=== PATIENT | female | born 2000 | race Caucasian/White ===

== ENCOUNTER 2021-10-28 07:42 | Emergency (ER) | payer OTHER ==
[2021-10-28 07:49] VITALS: RESP 16
[2021-10-28] MEDS ORDERED: ONDANSETRON 4 MG/2 ML VIAL IVP STA (08:23)
[2021-10-28] MEDS ORDERED: SODIUM CHLORIDE 0.9% 1,000 ML IV STA (08:23)
--- NOTE | 2021-10-28 08:29 | ED ---
General Adult HPI - General Chief complaint: Abdominal Pain Stated complaint: chest & abd pain, vomiting Time Seen by Provider: 10/28/21 08:20 Source: patient, RN notes reviewed, old records reviewed Mode of arrival: wheelchair Limitations: no limitations - History of Present Illness Initial comments: 19-year-old nontoxic-appearing female presents with lower abdominal pain started 6:30 this morning with 2 episodes of vomiting. She states the vomit was consistent with undigested food. Denies any cough. Does have chills but no documented fever. She said yesterday she was fine. No recent sick exposures. She has not been vaccinated against coronavirus or influenza. States that she has a history of depression takes Lexapro no other medications no other medical history. -: hour(s) (2) Location: abdomen Radiation: non-radiation Severity scale (1-10): 10 Quality: constant Consistency: constant Improves with: none Worsens with: other (palpation) Associated Symptoms: chest pain, fever/chills, nausea/vomiting Treatments Prior to Arrival: NSAID - Related Data Previous Rx's Medication Instructions Recorded Famotidine [Pepcid] 20 mg PO HS #28 tablet 10/28/21 Allergies Allergy/AdvReac Type Severity Reaction Status Date / Time No Known Allergies Allergy Verified 10/28/21 07:49 Review of Systems ROS Statement: Those systems with pertinent positive or pertinent negative responses have been documented in the HPI. ROS Other: All systems not noted in ROS Statement are negative. Past Medical History Past Medical History: No Reported History History of Any Multi-Drug Resistant Organisms: None Reported Past Surgical History: No Surgical Hx Reported Past Psychological History: Depression Smoking Status: Never smoker Past Alcohol Use History: Occasional Past Drug Use History: None Reported General Exam Limitations: no limitations General appearance: alert, in no apparent distress Head exam: Present: atraumatic Eye exam: Present: normal appearance. Absent: scleral icterus, conjunctival injection ENT exam: Present: normal oropharynx, mucous membranes moist Neck exam: Present: normal inspection, full ROM. Absent: tenderness, meningismus Respiratory exam: Present: normal lung sounds bilaterally. Absent: respiratory distress, accessory muscle use Cardiovascular Exam: Present: tachycardia GI/Abdominal exam: Present: soft, tenderness (Diffuse). Absent: distended, rigid Extremities exam: Present: normal inspection, full ROM, normal capillary refill. Absent: tenderness Back exam: Present: normal inspection, full ROM. Absent: tenderness, CVA tender ness (R), CVA tenderness (L), rash noted Neurological exam: Present: alert, oriented X3 Psychiatric exam: Present: normal affect, normal mood Skin exam: Present: warm, normal color. Absent: cyanosis, diaphoretic, petechiae, pallor Course Vital Signs 10/28/21 10/28/21 07:46 10:10 Temperature 98.1 F 97.3 F L Pulse Rate 108 H 83 Respiratory 16 16 Rate Blood Pressure 110/65 121/64 O2 Sat by Pulse 99 99 Oximetry Medical Decision Making - Medical Decision Making The patient was given IV fluids and Zofran with relief from her nausea and vomiting. She continued to have epigastric abdominal pain on palpation and was given Pepcid and GI cocktail with relief. On reexam patient's abdomen is soft and nontender. She was prescribed Pepcid to take daily and to follow up with her primary care doctor. This is likely gastritis however she did recently start taking Lexapro a month ago for depression. Patient and father are agreeable to being discharged home, taking the pepcid as prescribed and followin g up with her primary care doctor. Strict return parameters were discussed. Vital signs are stable. Case discussed with Dr. Jurado. - Lab Data Result diagrams: 10/28/21 08:56 10/28/21 08:56 Lab Results 10/28/21 10/28/21 10/28/21 Range/Units 08:56 08:56 08:56 WBC 14.3 H (3.8-10.6) k/uL RBC 4.46 (3.80-5.40) m/uL Hgb 11.5 (11.4-16.0) gm/dL Hct 35.3 (34.0-46.0) % MCV 79.2 L (80.0-100.0) fL MCH 25.7 (25.0-35.0) pg MCHC 32.4 (31.0-37.0) g/dL RDW 14.8 (11.5-15.5) % Plt Count 411 (150-450) k/uL MPV 7.7 Neutrophils % 80 % Lymphocytes % 15 % Monocytes % 3 % Eosinophils % 0 % Basophils % 0 % Neutrophils # 11.4 H (1.3-7.7) k/uL Lymphocytes # 2.2 (1.0-4.8) k/uL Monocytes # 0.4 (0-1.0) k/uL Eosinophils # 0.1 (0-0.7) k/uL Basophils # 0.1 (0-0.2) k/uL Sodium (137-145) mmol/L Potassium (3.5-5.1) mmol/L Chloride (98-107) mmol/L Carbon Dioxide (22-30) mmol/L Anion Gap mmol/L BUN (7-17) mg/dL Creatinine (0.52-1.04) mg/dL Est GFR (CKD-EPI)AfAm (>60 ml/min/1.73 sqM) Est GFR (CKD-EPI)NonAf (>60 ml/min/1.73 sqM) Glucose (74-99) mg/dL Plasma Lactic Acid Simon (0.7-2.0) mmol/L Calcium (8.4-10.2) mg/dL Total Bilirubin (0.2-1.3) mg/dL AST (14-36) U/L ALT (4-34) U/L Alkaline Phosphatase (38-126) U/L Total Protein (6.3-8.2) g/dL Albumin (3.5-5.0) g/dL Amylase (30-110) U/L Lipase (23-300) U/L Urine Color Yellow Urine Appearance Cloudy H (Clear) Urine pH 7.0 (5.0-8.0) Ur Specific [place] 1.029 (1.001-1.035) Urine Protein 1+ H (Negative) Urine Glucose (UA) Negative (Negative) Urine Ketones Negative (Negative) Urine Blood Negative (Negative) Urine Nitrite Negative (Negative) Urine Bilirubin Negative (Negative) Urine Urobilinogen 2.0 (<2.0) mg/dL Ur Leukocyte Esterase Moderate H (Negative) Urine RBC 5 (0-5) /hpf Urine WBC 15 H (0-5) /hpf Ur Squamous Epith Cells 43 H (0-4) /hpf Urine Bacteria Rare H (None) /hpf Urine Mucus Few H (None) /hpf Urine HCG, Qual Not Detected (Not Detectd) Coronavirus (PCR) (Not Detectd) Influenza Type A RNA (Not Detectd) Influenza Type B (PCR) (Not Detectd) 10/28/21 10/28/21 10/28/21 Range/Units 08:56 08:56 08:56 WBC (3.8-10.6) k/uL RBC (3.80-5.40) m/uL Hgb (11.4-16.0) gm/dL Hct (34.0-46.0) % MCV (80.0-100.0) fL MCH (25.0-35.0) pg MCHC (31.0-37.0) g/dL RDW (11.5-15.5) % Plt Count (150-450) k/uL MPV Neutrophils % % Lymphocytes % % Monocytes % % Eosinophils % % Basophils % % Neutrophils # (1.3-7.7) k/uL Lymphocytes # (1.0-4.8) k/uL Monocytes # (0-1.0) k/uL Eosinophils # (0-0.7) k/uL Basophils # (0-0.2) k/uL Sodium 137 (137-145) mmol/L Potassium 4.0 (3.5-5.1) mmol/L Chloride 102 (98-107) mmol/L Carbon Dioxide 25 (22-30) mmol/L Anion Gap 10 mmol/L BUN 12 (7-17) mg/dL Creatinine 0.71 (0.52-1.04) mg/dL Est GFR (CKD-EPI)AfAm >90 (>60 ml/min/1.73 sqM) Est GFR (CKD-EPI)NonAf >90 (>60 ml/min/1.73 sqM) Glucose 108 H (74-99) mg/dL Plasma Lactic Acid Simon 1.3 (0.7-2.0) mmol/L Calcium 9.2 (8.4-10.2) mg/dL Total Bilirubin 0.2 (0.2-1.3) mg/dL AST 19 (14-36) U/L ALT 13 (4-34) U/L Alkaline Phosphatase 97 (38-126) U/L Total Protein 7.5 (6.3-8.2) g/dL Albumin 4.6 (3.5-5.0) g/dL Amylase 59 (30-110) U/L Lipase 72 (23-300) U/L Urine Color Urine Appearance (Clear) Urine pH (5.0-8.0) Ur Specific [place] (1.001-1.035) Urine Protein (Negative) Urine Glucose (UA) (Negative) Urine Ketones (Negative) Urine Blood (Negative) Urine Nitrite (Negative) Urine Bilirubin (Negative) Urine Urobilinogen (<2.0) mg/dL Ur Leukocyte Esterase (Negative) Urine RBC (0-5) /hpf Urine WBC (0-5) /hpf Ur Squamous Epith Cells (0-4) /hpf Urine Bacteria (None) /hpf Urine Mucus (None) /hpf Urine HCG, Qual (Not Detectd) Coronavirus (PCR) Not Detected (Not Detectd) Influenza Type A RNA (Not Detectd) Influenza Type B (PCR) (Not Detectd) 10/28/21 Range/Units 08:56 WBC (3.8-10.6) k/uL RBC (3.80-5.40) m/uL Hgb (11.4-16.0) gm/dL Hct (34.0-46.0) % MCV (80.0-100.0) fL MCH (25.0-35.0) pg MCHC (31.0-37.0) g/dL RDW (11.5-15.5) % Plt Count (150-450) k/uL MPV Neutrophils % % Lymphocytes % % Monocytes % % Eosinophils % % Basophils % % Neutrophils # (1.3-7.7) k/uL Lymphocytes # (1.0-4.8) k/uL Monocytes # (0-1.0) k/uL Eosinophils # (0-0.7) k/uL Basophils # (0-0.2) k/uL Sodium (137-145) mmol/L Potassium (3.5-5.1) mmol/L Chloride (98-107) mmol/L Carbon Dioxide (22-30) mmol/L Anion Gap mmol/L BUN (7-17) mg/dL Creatinine (0.52-1.04) mg/dL Est GFR (CKD-EPI)AfAm (>60 ml/min/1.73 sqM) Est GFR (CKD-EPI)NonAf (>60 ml/min/1.73 sqM) Glucose (74-99) mg/dL Plasma Lactic Acid Simon (0.7-2.0) mmol/L Calcium (8.4-10.2) mg/dL Total Bilirubin (0.2-1.3) mg/dL AST (14-36) U/L ALT (4-34) U/L Alkaline Phosphatase (38-126) U/L Total Protein (6.3-8.2) g/dL Albumin (3.5-5.0) g/dL Amylase (30-110) U/L Lipase (23-300) U/L Urine Color Urine Appearance (Clear) Urine pH (5.0-8.0) Ur Specific [place] (1.001-1.035) Urine Protein (Negative) Urine Glucose (UA) (Negative) Urine Ketones (Negative) Urine Blood (Negative) Urine Nitrite (Negative) Urine Bilirubin (Negative) Urine Urobilinogen (<2.0) mg/dL Ur Leukocyte Esterase (Negative) Urine RBC (0-5) /hpf Urine WBC (0-5) /hpf Ur Squamous Epith Cells (0-4) /hpf Urine Bacteria (None) /hpf Urine Mucus (None) /hpf Urine HCG, Qual (Not Detectd) Coronavirus (PCR) (Not Detectd) Influenza Type A RNA Not Detected (Not Detectd) Influenza Type B (PCR) Not Detected (Not Detectd) Disposition Clinical Impression: Abdominal pain Disposition: HOME SELF-CARE Instructions (If sedation given, give patient instructions): Acute Nausea and Vomiting (ED), Abdominal Pain (ED) Additional Instructions: Take Pepcid every night before going to bed. Follow-up with the primary care doctor next week. Return to the emergency room with any new or concerning symptoms including increased pain, especially right lower quadrant, fevers or persistent nausea vomiting. Prescriptions: Famotidine [Pepcid] 20 mg PO HS #28 tablet Is patient prescribed a controlled substance at d/c from ED?: No Referrals: Julio Cesar Rosado DO [Primary Care Provider] - 1-2 days Time of Disposition: 11:43
[2021-10-28 09:19] LABS: Basophils # (A) 0.1 k/uL (0-0.2); Basophils % (A) 0 %; Eosinophils # (A) 0.1 k/uL (0-0.7); Eosinophils % (A) 0 %; HCT 35.3 % (34.0-46.0); HGB 11.5 gm/dL (11.4-16.0); Lymphocytes # (A) 2.2 k/uL (1.0-4.8); Lymphocytes % (A) 15 %; MCH 25.7 pg (25.0-35.0); MCHC 32.4 g/dL (31.0-37.0); MCV 79.2 fL (80.0-100.0); Mean Platelet Volume 7.7; Monocytes # (A) 0.4 k/uL (0-1.0); Monocytes % (A) 3 %; Neutrophils # (A) 11.4 k/uL (1.3-7.7); Neutrophils % (A) 80 %; Platelet Count 411 k/uL (150-450); RBC 4.46 m/uL (3.80-5.40); RDW 14.8 % (11.5-15.5); WBC 14.3 k/uL (3.8-10.6)
[2021-10-28 09:30] LABS: ALT 13 U/L (4-34); AST 19 U/L (14-36); African American GFR (CKD) >90 (>60 ml/min/1.73 sqM); Albumin 4.6 g/dL (3.5-5.0); Alkaline Phosphatase 97 U/L (38-126); Amylase 59 U/L (30-110); Anion Gap 10 mmol/L; Blood Urea Nitrogen 12 mg/dL (7-17); Calcium 9.2 mg/dL (8.4-10.2); Carbon Dioxide 25 mmol/L (22-30); Chloride 102 mmol/L (98-107); Glucose 108 mg/dL (74-99); Lipase 72 U/L (23-300); Non-African American GFR(CKD) >90 (>60 ml/min/1.73 sqM); Sodium 137 mmol/L (137-145); Total Bilirubin 0.2 mg/dL (0.2-1.3); Total Protein 7.5 g/dL (6.3-8.2)
[2021-10-28 09:44] LABS: Appearance,Urine Cloudy (Clear); Bacteria,Urine Rare /hpf; Bilirubin,Urine Negative (Negative); Blood,Urine Negative (Negative); Color,Urine Yellow; Glucose,Urine (UA) Negative (Negative); Ketones,Urine Negative (Negative); Leukocyte Esterase,Urine Moderate (Negative); Mucus,Urine Few /hpf; Nitrite,Urine Negative (Negative); Protein,Urine 1+ (Negative); RBC,Urine 5 /hpf (0-5); Specific Gravity,Urine 1.029 (1.001-1.035); Squamous Epithelial Cell,Urine 43 /hpf (0-4); WBC,Urine 15 /hpf (0-5)
--- NOTE | 2021-10-28 10:00 | XR ---
EXAMINATION TYPE: XR chest 2V DATE OF EXAM: 10/28/2021 9:52 AM COMPARISON: none TECHNIQUE: XR chest 2V Frontal and lateral views of the chest. CLINICAL INDICATION:Female, 21 years old with history of chest pain; FINDINGS: Lungs/Pleura: There is no evidence of pleural effusion, focal consolidation, or pneumothorax. Pulmonary vascularity: Unremarkable. Heart/mediastinum: Cardiomediastinal silhouette is unremarkable. Musculoskeletal: No acute osseous pathology. IMPRESSION: No acute cardiopulmonary disease/process.
[2021-10-28 10:14] VITALS: BP 121/64; PULSE 83; TEMP 97.3
[2021-10-28] MEDS ORDERED: MAG HYDROX/AL HYDROX/SIMETH 30 ML, HYOSCYAMINE ELIXIR 10 ML, LIDOCAINE VISCOUS 2% 10 ML PO STA ×3 (10:46)
[2021-10-28] MEDS ORDERED: FAMOTIDINE 20 MG/2 ML VIAL IV STA (10:46)
== END 2021-10-28 11:53 | disposition home or self-care (01) ==
LOC: EC 07:42
DX: R10.30 Lower abdominal pain, unspecified (principal); Z20.822 Contact with and (suspected) exposure to COVID-19
CPT/HCPCS: 99284; 96374; 96375; 96361; 36415; 93005; 80053; 82150; 83605; 83690; 85025; 81001; 81025; 87086; 87502; 87635; 71046; J2405

== ENCOUNTER 2022-01-03 17:52 | Emergency (ER) | payer OTHER ==
[2022-01-03 18:46] VITALS: TEMP 98.7
--- NOTE | 2022-01-03 19:30 | ED ---
Psych HPI - General Chief Complaint: Psychiatric Symptoms Stated Complaint: Suicide Time Seen by Provider: 01/03/22 18:58 Source: patient Mode of arrival: ambulatory - History of Present Illness Initial Comments: Patient is a 21-year-old female presenting for mental health evaluation. Patient states that she has had a lot of stressors with her friends lately. She states that today she had an "out of body experience" where she was fully conscious and aware of her actions but was unable to stop herself from doing anything impulsive. Patient took a pocket knife and cut her hand. At this time the bleeding is well controlled and there is a scab over the injury. Patient received a tetanus shot last month. Patient is having thoughts of self-harm, she is not having any suicidal ideation. She denies homicidal ideation, visual or auditory hallucinations. No physical complaints at this time. - Related Data Previous Rx's Medication Instructions Recorded Famotidine [Pepcid] 20 mg PO HS #28 tablet 10/28/21 Allergies Allergy/AdvReac Type Severity Reaction Status Date / Time No Known Allergies Allergy Verified 01/03/22 18:46 Review of Systems ROS Statement: Those systems with pertinent positive or pertinent negative responses have been documented in the HPI. ROS Other: All systems not noted in ROS Statement are negative. Past Medical History Past Medical History: No Reported History History of Any Multi-Drug Resistant Organisms: None Reported Past Surgical History: No Surgical Hx Reported Past Psychological History: Depression Smoking Status: Never smoker Past Alcohol Use History: Occasional Past Drug Use History: None Reported General Exam Limitations: no limitations General appearance: alert, in no apparent distress Head exam: Present: atraumatic, normocephalic, normal inspection Eye exam: Present: normal appearance, EOMI. Absent: scleral icterus, periorbital swelling Neck exam: Present: normal inspection Respiratory exam: Present: normal lung sounds bilaterally. Absent: respiratory distress, wheezes, rales, rhonchi, stridor Cardiovascular Exam: Present: regular rate, normal rhythm, normal heart sounds. Absent: systolic murmur, diastolic murmur, rubs, gallop, clicks Neurological exam: Present: alert, oriented X3, CN II-XII intact Psychiatric exam: Present: normal affect, normal mood Skin exam: Present: warm, dry, intact, normal color. Absent: rash Course Vital Signs 01/03/22 01/03/22 18:43 22:43 Temperature 98.7 F Pulse Rate 96 90 Respiratory 20 18 Rate Blood Pressure 121/74 113/77 O2 Sat by Pulse 95 99 Oximetry Medical Decision Making - Medical Decision Making Patient is a 21-year-old female presenting for mental health evaluation. Patient cut her hand with a pocket knife today, states that she was unable to control her actions at that time. Tetanus is up-to-date. Patient has no other physical complaints. EPS is consulted. EPS developed a safety plan with her and determined her safe to go home today. Follow-up with PCP. Report back to ER with any new or worsening symptoms. Discussed return parameters and answered all questions. Patient conveyed verbal understanding and agreed to the plan. I discussed this case in detail with my attending Dr. Manuel - Lab Data Lab Results 01/03/22 Range/Units 20:02 Urine Opiates Screen Not Detected (NotDetected) Ur Oxycodone Screen Not Detected (NotDetected) Urine Methadone Screen Not Detected (NotDetected) Ur Propoxyphene Screen Not Detected (NotDetected) Ur Barbiturates Screen Not Detected (NotDetected) U Tricyclic Antidepress Not Detected (NotDetected) Ur Phencyclidine Scrn Not Detected (NotDetected) Ur Amphetamines Screen Not Detected (NotDetected) U Methamphetamines Scrn Not Detected (NotDetected) U Benzodiazepines Scrn Not Detected (NotDetected) Urine Cocaine Screen Not Detected (NotDetected) U Marijuana (THC) Screen Not Detected (NotDetected) Disposition Clinical Impression: Acute anxiety, Depression, Adjustment reaction of adult life Disposition: HOME SELF-CARE Condition: Fair Instructions (If sedation given, give patient instructions): Depression (ED), Anxiety (ED) Additional Instructions: Follow-up with PCP. Report back to ER with any new or worsening symptoms. Is patient prescribed a controlled substance at d/c from ED?: No Referrals: None,Stated [REFERRING] - 1-2 days Time of Disposition: 22:13
[2022-01-03 20:39] LABS: Amphetamine Screen,Urine Not Detected (NotDetected); Barbiturate Screen,Urine Not Detected (NotDetected); Benzodiazepines Screen,Urine Not Detected (NotDetected); Cocaine Screen,Urine Not Detected (NotDetected); Methadone Screen, Urine Not Detected (NotDetected); Opiate Screen,Urine Not Detected (NotDetected); Oxycodone Screen, Urine Not Detected (NotDetected); Phencyclidine Screen,Urine Not Detected (NotDetected); Tricyclic Antidepressant,Urine Not Detected (NotDetected); Urn Cannabinoid Scrn Not Detected (NotDetected)
[2022-01-03 22:44] VITALS: BP 113/77; PULSE 90; RESP 18
== END 2022-01-03 22:44 | disposition home or self-care (01) ==
LOC: EC 17:52
DX: F41.9 Anxiety disorder, unspecified (principal); F32.A Depression, unspecified; F43.20 Adjustment disorder, unspecified
CPT/HCPCS: 80306; 82075; 99284

== ENCOUNTER 2022-02-13 05:40 | Emergency (ER) | payer OTHER ==
[2022-02-13 05:46] VITALS: TEMP 98.4
[2022-02-13] MEDS ORDERED: ONDANSETRON 4 MG/2 ML VIAL IVP STA (06:29)
[2022-02-13] MEDS ORDERED: PANTOPRAZOLE 40 MG/10 ML VIAL IVP STA (06:29)
[2022-02-13] MEDS ORDERED: SODIUM CHLORIDE 0.9% 1,000 ML IV STA (06:29)
[2022-02-13] MEDS ORDERED: SODIUM CHLORIDE 0.9% 500 ML 500 ML IV STA (06:29)
--- NOTE | 2022-02-13 06:58 | ED ---
Abdominal Pain HPI - General Chief Complaint: Abdominal Pain Stated Complaint: Abdominal pain Time Seen by Provider: 02/13/22 06:03 Source: EMS Mode of arrival: EMS Limitations: no limitations - History of Present Illness Initial Comments: This a 22-year-old female presents emergency Department with chief complaint of nausea vomiting abdominal discomfort. Patient states she suffers from GERD, gastritis states that she is normally on omeprazole and has been off her meds for last few days as she has not been a refill. Patient states started having emesis earlier this morning. Patient denies any increase abdominal pain she states that she did have vomiting which relieved some of her prior discomfort. Patient denies any fevers or chills denies any chance no dysuria. Patient states her emesis is bile at this time. - Related Data Previous Rx's Medication Instructions Recorded Famotidine [Pepcid] 20 mg PO HS #28 tablet 10/28/21 Omeprazole [PriLOSEC] 20 mg PO AC-BRKFST #30 cap 02/13/22 Ondansetron Odt [Zofran Odt] 4 mg PO Q8HR PRN #10 tab 02/13/22 Allergies Allergy/AdvReac Type Severity Reaction Status Date / Time No Known Allergies Allergy Verified 02/13/22 05:43 Review of Systems ROS Statement: Those systems with pertinent positive or pertinent negative responses have been documented in the HPI. ROS Other: All systems not noted in ROS Statement are negative. Past Medical History Past Medical History: No Reported History History of Any Multi-Drug Resistant Organisms: None Reported Past Surgical History: No Surgical Hx Reported Past Psychological History: Depression Smoking Status: Never smoker Past Alcohol Use History: Occasional Past Drug Use History: None Reported General Exam Limitations: no limitations General appearance: alert, in no apparent distress Head exam: Present: atraumatic, normocephalic, normal inspection Eye exam: Present: normal appearance, PERRL, EOMI. Absent: scleral icterus, conjunctival injection, periorbital swelling ENT exam: Present: normal exam, mucous membranes moist Neck exam: Present: normal inspection. Absent: tenderness, meningismus, lymphadenopathy Respiratory exam: Present: normal lung sounds bilaterally. Absent: respiratory distress, wheezes, rales, rhonchi, stridor Cardiovascular Exam: Present: regular rate, normal rhythm, normal heart sounds. Absent: systolic murmur, diastolic murmur, rubs, gallop, clicks GI/Abdominal exam: Present: soft, tenderness, normal bowel sounds. Absent: distended, guarding, rebound, rigid Back exam: Absent: CVA tenderness (R), CVA tenderness (L) Neurological exam: Present: alert Course Vital Signs 02/13/22 02/13/22 05:43 07:41 Temperature 98.4 F Pulse Rate 71 92 Respiratory 15 16 Rate Blood Pressure 137/67 116/73 O2 Sat by Pulse 99 100 Oximetry Medical Decision Making - Medical Decision Making Patient was well hydrated, given antiemetics, and antacids feels greatly impr adry. She has no abdominal pain. Patient is afebrile be discharged in stable condition return parameters were discussed. - Lab Data Result diagrams: 02/13/22 06:41 02/13/22 06:41 Lab Results 02/13/22 02/13/22 Range/Units 06:41 06:41 WBC 16.2 H (3.8-10.6) k/uL RBC 4.36 (3.80-5.40) m/uL Hgb 11.2 L (11.4-16.0) gm/dL Hct 34.7 (34.0-46.0) % MCV 79.6 L (80.0-100.0) fL MCH 25.7 (25.0-35.0) pg MCHC 32.3 (31.0-37.0) g/dL RDW 14.5 (11.5-15.5) % Plt Count 399 (150-450) k/uL MPV 8.0 Neutrophils % 83 % Lymphocytes % 12 % Monocytes % 3 % Eosinophils % 0 % Basophils % 1 % Neutrophils # 13.5 H (1.3-7.7) k/uL Lymphocytes # 1.9 (1.0-4.8) k/uL Monocytes # 0.5 (0-1.0) k/uL Eosinophils # 0.1 (0-0.7) k/uL Basophils # 0.1 (0-0.2) k/uL Hypochromasia Slight Sodium 138 (137-145) mmol/L Potassium 3.9 (3.5-5.1) mmol/L Chloride 102 (98-107) mmol/L Carbon Dioxide 23 (22-30) mmol/L Anion Gap 13 mmol/L BUN 12 (7-17) mg/dL Creatinine 0.68 (0.52-1.04) mg/dL Est GFR (CKD-EPI)AfAm >90 (>60 ml/min/1.73 sqM) Est GFR (CKD-EPI)NonAf >90 (>60 ml/min/1.73 sqM) Glucose 103 H (74-99) mg/dL Calcium 9.1 (8.4-10.2) mg/dL Total Bilirubin 0.3 (0.2-1.3) mg/dL AST 22 (14-36) U/L ALT 20 (4-34) U/L Alkaline Phosphatase 93 (38-126) U/L Total Protein 7.3 (6.3-8.2) g/dL Albumin 4.6 (3.5-5.0) g/dL Lipase 80 (23-300) U/L Disposition Clinical Impression: Nausea & vomiting, GERD (gastroesophageal reflux disease) Disposition: HOME SELF-CARE Condition: Stable Instructions (If sedation given, give patient instructions): Acute Nausea and Vomiting (ED) Additional Instructions: Please return to the Emergency Department if symptoms worsen or any other concerns. Prescriptions: Omeprazole [PriLOSEC] 20 mg PO AC-BRKFST #30 cap Ondansetron Odt [Zofran Odt] 4 mg PO Q8HR PRN #10 tab PRN Reason: Nausea Is patient prescribed a controlled substance at d/c from ED?: No Referrals: Rey Sparks MD [Primary Care Provider] - 1-2 days Time of Disposition: 09:04
[2022-02-13 07:09] LABS: Basophils # (A) 0.1 k/uL (0-0.2); Basophils % (A) 1 %; Eosinophils # (A) 0.1 k/uL (0-0.7); Eosinophils % (A) 0 %; HCT 34.7 % (34.0-46.0); HGB 11.2 gm/dL (11.4-16.0); Hypochromasia Slight; Lymphocytes # (A) 1.9 k/uL (1.0-4.8); Lymphocytes % (A) 12 %; MCH 25.7 pg (25.0-35.0); MCHC 32.3 g/dL (31.0-37.0); MCV 79.6 fL (80.0-100.0); Monocytes # (A) 0.5 k/uL (0-1.0); Monocytes % (A) 3 %; Neutrophils # (A) 13.5 k/uL (1.3-7.7); Neutrophils % (A) 83 %; Platelet Count 399 k/uL (150-450); RBC 4.36 m/uL (3.80-5.40); RDW 14.5 % (11.5-15.5); WBC 16.2 k/uL (3.8-10.6)
[2022-02-13 07:10] LABS: ALT 20 U/L (4-34); AST 22 U/L (14-36); African American GFR (CKD) >90 (>60 ml/min/1.73 sqM); Albumin 4.6 g/dL (3.5-5.0); Alkaline Phosphatase 93 U/L (38-126); Anion Gap 13 mmol/L; Blood Urea Nitrogen 12 mg/dL (7-17); Calcium 9.1 mg/dL (8.4-10.2); Carbon Dioxide 23 mmol/L (22-30); Chloride 102 mmol/L (98-107); Glucose 103 mg/dL (74-99); Lipase 80 U/L (23-300); Non-African American GFR(CKD) >90 (>60 ml/min/1.73 sqM); Potassium 3.9 mmol/L (3.5-5.1); Sodium 138 mmol/L (137-145); Total Bilirubin 0.3 mg/dL (0.2-1.3); Total Protein 7.3 g/dL (6.3-8.2)
[2022-02-13 09:14] VITALS: BP 119/61; PULSE 90; RESP 18
== END 2022-02-13 09:14 | disposition home or self-care (01) ==
LOC: EC 05:40
DX: K21.9 Gastro-esophageal reflux disease without esophagitis (principal); R11.2 Nausea with vomiting, unspecified; F32.A Depression, unspecified
CPT/HCPCS: 36415; 80053; 83690; 85025; 99284; 96374; 96375; 96361 ×2; J2405; C9113

== ENCOUNTER 2022-02-18 05:40 | Observation (INO) | payer OTHER ==
[2022-02-18] MEDS ORDERED: ONDANSETRON 4 MG/2 ML VIAL IVP STA (06:46)
[2022-02-18] MEDS ORDERED: KETOROLAC 15 MG/ML 1 ML VIAL IVP STA (06:46)
[2022-02-18] MEDS ORDERED: PANTOPRAZOLE 40 MG/10 ML VIAL IVP STA (06:46)
[2022-02-18] MEDS ORDERED: SODIUM CHLORIDE 0.9% 1,000 ML IV STA ×2 (06:46→09:17)
[2022-02-18] MEDS ORDERED: LACTULOSE 20 GM/30 ML CUP PO ONE (06:50)
--- NOTE | 2022-02-18 06:56 | ED ---
Abdominal Pain HPI - General Chief Complaint: Nausea/Vomiting/Diarrhea Stated Complaint: Chest Pain, Constipated Time Seen by Provider: 02/18/22 05:58 Source: patient, family, RN notes reviewed Mode of arrival: ambulatory Limitations: no limitations - History of Present Illness Initial Comments: This is a 22-year-old female who presents to the emergency department for abdominal pain, nausea, and vomiting. She was evaluated here on 02/13 for similar symptoms that were attributed to GERD and gastritis, which she does have a history of. She has since been taking Nexium and states that she had been doing well. Yesterday, she started to develop pain in the RUQ and epigastric region radiating into the back along with the nausea and vomiting. Her father states that she has also been constipated and has not had a bowel movement in 3 days. Additionally, he states that she is very sedentary and plays video games for approximately 16 hours each day, which he believes is a contributing factor to the constipation. He states the last time they were here, she was given a light blue liquid medication for her constipation, which worked very well. Denies any fevers, chills, sore throat, cough, dyspnea, chest pain, palpitations, diarrhea, or headaches. MD Complaint: abdominal pain Onset/Timin -: days(s) Location: RUQ, epigastric Radiation: back Associated Symptoms: nausea, vomiting, constipation - Related Data Previous Rx's Medication Instructions Recorded Famotidine [Pepcid] 20 mg PO HS #28 tablet 10/28/21 Omeprazole [PriLOSEC] 20 mg PO AC-BRKFST #30 cap 02/13/22 Ondansetron Odt [Zofran Odt] 4 mg PO Q8HR PRN #10 tab 02/13/22 Allergies Allergy/AdvReac Type Severity Reaction Status Date / Time No Known Allergies Allergy Verified 02/18/22 05:54 Review of Systems ROS Statement: Those systems with pertinent positive or pertinent negative responses have been documented in the HPI. ROS Other: All systems not noted in ROS Statement are negative. Past Medical History Past Medical History: No Reported History History of Any Multi-Drug Resistant Organisms: None Reported Past Surgical History: No Surgical Hx Reported Past Psychological History: Depression Smoking Status: Never smoker Past Alcohol Use History: Occasional Past Drug Use History: None Reported General Exam Limitations: no limitations General appearance: alert, in distress, other (actively vomiting) Head exam: Present: atraumatic, normocephalic, normal inspection Respiratory exam: Present: normal lung sounds bilaterally. Absent: respiratory distress, wheezes, rales, rhonchi, stridor Cardiovascular Exam: Present: regular rate, normal rhythm, normal heart sounds. Absent: systolic murmur, diastolic murmur, rubs, gallop, clicks GI/Abdominal exam: Present: soft, tenderness, normal bowel sounds. Absent: distended Expanded GI/Abdominal exam: Present: Daley's sign Neurological exam: Present: alert, oriented X3, CN II-XII intact Psychiatric exam: Present: normal affect, normal mood Skin exam: Present: warm, dry, intact, normal color. Absent: rash Course Vital Signs 02/18/22 02/18/22 05:52 07:59 Temperature 98.1 F Pulse Rate 114 H 81 Respiratory 20 18 Rate Blood Pressure 127/79 116/70 O2 Sat by Pulse 97 98 Oximetry Medical Decision Making - Medical Decision Making This is a 22-year-old female who presents to the emergency department for abdominal pain, nausea, and vomiting. She is noted to be actively vomiting upon initial examination. Patient given IV fluids, Zofran, Protonix, and Toradol. US of the gallbladder was obtained as well, which was ordered due to the location of her pain with radiation into the back. Upon chart review, it a ppears that the only liquid medication she was given here was a GI cocktail, which I discussed with the nursing staff is not a light blue color. It is unclear what this medication was. She was given a repeat GI cocktail since that is what she had previously. Lab work does reveal leukocytosis and was otherwise nonactionable. Gallbladder US reveals cholelithiasis with biliary sludge and a positive sonographic Daley sign consistent with an acute cholecystitis. Patient admitted to surgery for surgical intervention. She was started on IV fluids and Zosyn. The medicine team was consulted for medical management as well. This case was discussed in detail with the attending ED physician. Presentation, findings, and treatment plan discussed in detail as well. - Lab Data Result diagrams: 02/18/22 07:08 02/18/22 07:10 Lab Results 02/18/22 02/18/22 Range/Units 07:08 07:10 WBC 17.6 H (3.8-10.6) k/uL RBC 4.17 (3.80-5.40) m/uL Hgb 10.9 L (11.4-16.0) gm/dL Hct 33.3 L (34.0-46.0) % MCV 79.8 L (80.0-100.0) fL MCH 26.2 (25.0-35.0) pg MCHC 32.8 (31.0-37.0) g/dL RDW 14.3 (11.5-15.5) % Plt Count 438 (150-450) k/uL MPV 7.4 Neutrophils % 89 % Lymphocytes % 8 % Monocytes % 2 % Eosinophils % 0 % Basophils % 0 % Neutrophils # 15.6 H (1.3-7.7) k/uL Lymphocytes # 1.4 (1.0-4.8) k/uL Monocytes # 0.4 (0-1.0) k/uL Eosinophils # 0.0 (0-0.7) k/uL Basophils # 0.0 (0-0.2) k/uL Hypochromasia Slight Sodium 137 (137-145) mmol/L Potassium 3.9 (3.5-5.1) mmol/L Chloride 101 (98-107) mmol/L Carbon Dioxide 24 (22-30) mmol/L Anion Gap 12 mmol/L BUN 9 (7-17) mg/dL Creatinine 0.65 (0.52-1.04) mg/dL Est GFR (CKD-EPI)AfAm >90 (>60 ml/min/1.73 sqM) Est GFR (CKD-EPI)NonAf >90 (>60 ml/min/1.73 sqM) Glucose 128 H (74-99) mg/dL Calcium 9.0 (8.4-10.2) mg/dL Total Bilirubin 0.4 (0.2-1.3) mg/dL AST 23 (14-36) U/L ALT 20 (4-34) U/L Alkaline Phosphatase 89 (38-126) U/L Total Protein 7.2 (6.3-8.2) g/dL Albumin 4.7 (3.5-5.0) g/dL Amylase 50 (30-110) U/L Lipase 46 (23-300) U/L - Radiology Data Radiology results: report reviewed, image reviewed Disposition Clinical Impression: Acute cholecystitis Disposition: ADMITTED IP TO THIS [facility] Referrals: Rey Sparks MD [Primary Care Provider] - 1-2 days
[2022-02-18] MEDS ORDERED: MAG HYDROX/AL HYDROX/SIMETH 30 ML, HYOSCYAMINE ELIXIR 10 ML PO STA ×2 (07:12)
[2022-02-18 07:27] LABS: Basophils % (A) 0 %; Eosinophils % (A) 0 %; HCT 33.3 % (34.0-46.0); HGB 10.9 gm/dL (11.4-16.0); Hypochromasia Slight; Lymphocytes # (A) 1.4 k/uL (1.0-4.8); Lymphocytes % (A) 8 %; MCH 26.2 pg (25.0-35.0); MCHC 32.8 g/dL (31.0-37.0); MCV 79.8 fL (80.0-100.0); Mean Platelet Volume 7.4; Monocytes # (A) 0.4 k/uL (0-1.0); Monocytes % (A) 2 %; Neutrophils # (A) 15.6 k/uL (1.3-7.7); Neutrophils % (A) 89 %; Platelet Count 438 k/uL (150-450); RBC 4.17 m/uL (3.80-5.40); RDW 14.3 % (11.5-15.5); WBC 17.6 k/uL (3.8-10.6)
[2022-02-18 07:37] LABS: ALT 20 U/L (4-34); AST 23 U/L (14-36); African American GFR (CKD) >90 (>60 ml/min/1.73 sqM); Albumin 4.7 g/dL (3.5-5.0); Alkaline Phosphatase 89 U/L (38-126); Amylase 50 U/L (30-110); Anion Gap 12 mmol/L; Blood Urea Nitrogen 9 mg/dL (7-17); Carbon Dioxide 24 mmol/L (22-30); Chloride 101 mmol/L (98-107); Glucose 128 mg/dL (74-99); Lipase 46 U/L (23-300); Non-African American GFR(CKD) >90 (>60 ml/min/1.73 sqM); Potassium 3.9 mmol/L (3.5-5.1); Sodium 137 mmol/L (137-145); Total Bilirubin 0.4 mg/dL (0.2-1.3); Total Protein 7.2 g/dL (6.3-8.2)
--- NOTE | 2022-02-18 09:08 | US ---
EXAMINATION TYPE: US gallbladder DATE OF EXAM: 02/18/2022 COMPARISON: NONE CLINICAL HISTORY: Epigastric and RUQ pain. pain, nausea and vomiting. TECHNIQUE: Multiple sonographic images of the right upper quadrant are obtained. FINDINGS: EXAM MEASUREMENTS: Liver Length: 16.8 cm Gallbladder Wall: .5 cm CBD: .4 cm Right Kidney: 9.8 x 3.2 x 4.0 cm RIB MATCHER AND FITTER NOTES: Pancreas: Tail obscured by overlying bowel gas Liver: wnl Gallbladder: 1.9 cm stone with debris within. Gallbladder wall measuring slightly thickened at 4 mm. Evidence for sonographic Daley's sign: Yes CBD: wnl Right Kidney: No hydronephrosis or masses seen IMPRESSION: Cholelithiasis with biliary sludge. There is a positive sonographic Daley sign with mild thickening of the wall suggesting acute cholecystitis. Clinical correlation advised. Consider confirmation with dedicated HIDA scan.
[2022-02-18] MEDS ORDERED: PIPERACILLIN-TAZOBACTAM 3.375 GM in SODIUM CHLORIDE 0.9% 100 ML IVPB STA (09:20)
[2022-02-18] MEDS ORDERED: ONDANSETRON 4 MG/2 ML VIAL IVP PRN (09:29)
[2022-02-18] MEDS ORDERED: NALOXONE 0.4 MG/ML 1 ML VIAL IV PRN (09:29)
[2022-02-18] MEDS ORDERED: HYDROmorphone 1 MG/ML 1 ML SYRINGE IVP PRN (09:29)
[2022-02-18] MEDS ORDERED: KETOROLAC 15 MG/ML 1 ML VIAL IVP PRN (09:29)
[2022-02-18] MEDS ORDERED: HYDROmorphone 0.5 MG/0.5 ML SYRINGE IVP PRN (09:29)
[2022-02-18 09:53] LABS: Appearance,Urine Cloudy (Clear); Bacteria,Urine Rare /hpf; Bilirubin,Urine Negative (Negative); Blood,Urine Large (Negative); Color,Urine Yellow; Glucose,Urine (UA) Negative (Negative); Ketones,Urine Negative (Negative); Leukocyte Esterase,Urine Moderate (Negative); Mucus,Urine Rare /hpf; Nitrite,Urine Negative (Negative); Protein,Urine 1+ (Negative); RBC,Urine 8 /hpf (0-5); Specific Gravity,Urine 1.026 (1.001-1.035); Squamous Epithelial Cell,Urine 8 /hpf (0-4); Urobilinogen,Urine <2.0 mg/dL (<2.0); WBC,Urine 16 /hpf (0-5)
[2022-02-18 10:02] LABS: Amphetamine Screen,Urine Not Detected (NotDetected); Barbiturate Screen,Urine Not Detected (NotDetected); Benzodiazepines Screen,Urine Not Detected (NotDetected); Cocaine Screen,Urine Not Detected (NotDetected); Methadone Screen, Urine Not Detected (NotDetected); Opiate Screen,Urine Not Detected (NotDetected); Oxycodone Screen, Urine Not Detected (NotDetected); Phencyclidine Screen,Urine Not Detected (NotDetected); Tricyclic Antidepressant,Urine Not Detected (NotDetected); Urn Cannabinoid Scrn Not Detected (NotDetected)
[2022-02-18 11:40] VITALS: BP 97/49
[2022-02-18 12:26] VITALS: PULSE 69; RESP 16; TEMP 98.8
--- NOTE | 2022-02-18 12:31 | P.GSHP ---
History of Present Illness H&P Date: 02/18/22 CHIEF COMPLAINT: Abdominal pain HISTORY OF PRESENT ILLNESS: This is a 22-year-old female who presented to the ER with complaints of right upper quadrant abdominal pain with nausea and vomiting. She had similar symptoms when she presented to the ER back on 02/13/2022 at that time they treated her for GERD, gastritis and constipation. They gave her medication to help with bowel movements. Patient had bowel movements and improvement in abdominal pain. Last night around midnight patient had worsening right upper quadrant abdominal pain with nausea and vomiting. Gallbladder ultrasound shows cholelithiasis with biliary sludge. There is a positive Daley sign with a mild thickening of the gallbladder wall suggestive of acute cholecystitis. Patient was tachycardic and had elevated white count on admission. Patient denies any fever chills or sweats. Denies any prior abdominal surgery. Denies any cardiac history. PAST MEDICAL HISTORY: See list. PAST SURGICAL HISTORY: See list. MEDICATIONS: See list. ALLERGIES: See list. SOCIAL HISTORY: No illicit drug use. REVIEW OF SYSTEMS: CONSTITUTIONAL: Denies fever or chills. HEENT: Denies blurred vision, vision changes, or eye pain. Denies hemoptysis CARDIOVASCULAR: Denies chest pain or pressure. RESPIRATORY: No shortness of breath. GASTROINTESTINAL: See HPI for pertinent findings HEMATOLOGIC: Denies bleeding disorders. GENITOURINARY: Denies any blood in urine or increased urinary frequency. SKIN: Denies pruitis. Denies rash. PHYSICAL EXAM: VITAL SIGNS: Reviewed GENERAL: Well-developed in no acute distress. HEENT: No sclera icterus. Extraocular movements grossly intact. Moist buccal mucosa. Head is atraumatic, normocephalic. No nasal drainage. ABDOMEN: Soft. Obese. Nondistended. Epigastric tenderness NEUROLOGIC: Alert and oriented. Cranial nerves II through XII grossly intact. LABORATORY DATA: WBC is 17.6 Hgb 10.9 platelets 438 Sodium 137 potassium 3.9 cr 0.65 Total bilirubin 0.4 AST 23 ALT 20 alk phos 89 lipase 46 IMAGING: Gallbladder ultrasound shows cholelithiasis with biliary sludge. There is a positive Daley sign with a mild thickening of the gallbladder wall suggestive of acute cholecystitis ASSESSMENT: 1. Acute cholecystitis PLAN: -Patient scheduled for laparoscopic cholecystectomy today with Dr. arroyo -Continue IV antibiotics -Continue IV fluids -Continue supportive care -Medicine service consulted for medical management Physician Java Programmer Analyst note has been reviewed by physician. Signing provider agrees with the documented findings, assessment, and plan of care. Past Medical History Past Medical History: No Reported History History of Any Multi-Drug Resistant Organisms: None Reported Past Surgical History: No Surgical Hx Reported Past Psychological History: Depression Smoking Status: Never smoker Past Alcohol Use History: Occasional Past Drug Use History: None Reported Medications and Allergies Home Medications Medication Instructions Recorded Confirmed Type Omeprazole [PriLOSEC] 20 mg PO AC-BRKFST #30 cap 02/13/22 02/18/22 Rx Ondansetron Odt [Zofran Odt] 4 mg PO Q8HR PRN #10 tab 02/13/22 02/18/22 Rx ARIPiprazole [Abilify] 10 mg PO DAILY@192902/18/22 02/18/22 History Ascorbic Acid [Vitamin C] 500 mg PO DAILY 02/18/22 02/18/22 History Cholecalciferol [Vitamin D3 (25 50 mcg PO DAILY 02/18/22 02/18/22 History Mcg = 1000 Iu)] Escitalopram [Lexapro] 20 mg PO DAILY@192902/18/22 02/18/22 History Allergies Allergy/AdvReac Type Severity Reaction Status Date / Time No Known Allergies Allergy Verified 02/18/22 05:54 Surgical - Exam Vital Signs Temp Pulse Resp BP Pulse Ox 98.1 F 114 H 20 127/79 97 02/18/22 05:52 02/18/22 05:52 02/18/22 05:52 02/18/22 05:52 02/18/22 05:52 Results - Labs 02/18/22 07:08 02/18/22 07:10 Abnormal Lab Results - Last 24 Hours (Table) 02/18/22 02/18/22 02/18/22 Range/Units 07:08 07:10 09:36 WBC 17.6 H (3.8-10.6) k/uL Hgb 10.9 L (11.4-16.0) gm/dL Hct 33.3 L (34.0-46.0) % MCV 79.8 L (80.0-100.0) fL Neutrophils # 15.6 H (1.3-7.7) k/uL Glucose 128 H (74-99) mg/dL Urine Appearance Cloudy H (Clear) Urine Protein 1+ H (Negative) Urine Blood Large H (Negative) Ur Leukocyte Esterase Moderate H (Negative) Urine RBC 8 H (0-5) /hpf Urine WBC 16 H (0-5) /hpf Ur Squamous Epith Cells 8 H (0-4) /hpf Urine Bacteria Rare H (None) /hpf Urine Mucus Rare H (None) /hpf Diabetes panel 02/18/22 Range/Units 07:10 Sodium 137 (137-145) mmol/L Potassium 3.9 (3.5-5.1) mmol/L Chloride 101 (98-107) mmol/L Carbon Dioxide 24 (22-30) mmol/L BUN 9 (7-17) mg/dL Creatinine 0.65 (0.52-1.04) mg/dL Glucose 128 H (74-99) mg/dL Calcium 9.0 (8.4-10.2) mg/dL AST 23 (14-36) U/L ALT 20 (4-34) U/L Alkaline Phosphatase 89 (38-126) U/L Total Protein 7.2 (6.3-8.2) g/dL Albumin 4.7 (3.5-5.0) g/dL Calcium panel 02/18/22 Range/Units 07:10 Calcium 9.0 (8.4-10.2) mg/dL Albumin 4.7 (3.5-5.0) g/dL Pituitary panel 02/18/22 Range/Units 07:10 Sodium 137 (137-145) mmol/L Potassium 3.9 (3.5-5.1) mmol/L Chloride 101 (98-107) mmol/L Carbon Dioxide 24 (22-30) mmol/L BUN 9 (7-17) mg/dL Creatinine 0.65 (0.52-1.04) mg/dL Glucose 128 H (74-99) mg/dL Calcium 9.0 (8.4-10.2) mg/dL Adrenal panel 02/18/22 Range/Units 07:10 Sodium 137 (137-145) mmol/L Potassium 3.9 (3.5-5.1) mmol/L Chloride 101 (98-107) mmol/L Carbon Dioxide 24 (22-30) mmol/L BUN 9 (7-17) mg/dL Creatinine 0.65 (0.52-1.04) mg/dL Glucose 128 H (74-99) mg/dL Calcium 9.0 (8.4-10.2) mg/dL Total Bilirubin 0.4 (0.2-1.3) mg/dL AST 23 (14-36) U/L ALT 20 (4-34) U/L Alkaline Phosphatase 89 (38-126) U/L Total Protein 7.2 (6.3-8.2) g/dL Albumin 4.7 (3.5-5.0) g/dL
--- NOTE | 2022-02-18 14:30 | P.HPIM ---
History of Present Illness H&P Date: 02/18/22 This is a pleasant 22-year-old female who was recently presented to the emergency department per family for the third time in the last few months with abdominal pain nausea and vomiting. Patient was recently in the ER and discharged home with GERD and gastritis and given Prilosec and Zofran and di scharged home. Patient presents with the same symptoms with family present. Patient was initially admitted to surgical services for acute cholecystitis and family refusing the current surgeon on-call and nursing staff working on another surgeon for surgical services. Patient reports she has not had a bowel movement in the last 3 days with increasing nausea and vomiting and abdominal pain. Sandy ent underwent ultrasound of the gallbladder with cholelithiasis with biliary sludge positive Daley sign with mild thickening of the wall suggesting acute cholecystitis and patient was admitted to surgical services for possible cholecystectomy. Labs revealed a WBC of 17.6 with hemoglobin 10.9, BMP within normal limits, amylase 50, lipase 46, urine collected was dirty and patient is asymptomatic of these findings. Patient was started on Zosyn and IV hydration was placed nothing by mouth for surgical evaluation. Review Of Systems: Constitutional: No fever, no chills, no night sweats. No weight change. No weakness, reports fatigue. No daytime sleepiness. EENT: No headache. No blurred vision or double vision, no loss of vision. No loss of Hearing, no ringing in the ears, no dizziness. No nasal drainage or congestion. No epistaxis. No sore throat. Lungs: No shortness of breath, cough, no sputum production. No wheezing. Cardiovascular: No chest pain, no lower extremity edema. No palpitations. No paroxysmal nocturnal dyspnea. No orthopnea. No lightheadedness or dizziness. No syncopal episodes. Abdominal: Reports abdominal pain. Reports nausea, no recent vomiting. No di arrhea. No constipation. No bloody or tarry stools.. Reports loss of appetite. Reports last bowel movement was 3 days ago Genitourinary: No dysuria, increased frequency, urgency. No urinary retention. Musculoskeletal: No myalgias. No muscle weakness, no gait dysfunction, no frequent falls. No back pain. No neck pain. Integumentary: No wounds, no lesions. No rash or pruritus. No unusual b ruising. No change in hair or nails. Neurologic: No aphasia. No facial droop. No change in mentation. No head injury. No headache. No paralysis. No paresthesia. Psychiatric: No depression. No anxiety. No mood swings. Endocrine: No abnormal blood sugars. No weight change. No excessive sweating o r thirst. No cold intolerance. PHYSICAL EXAMINATION: GENERAL: The patient is alert and oriented x4, Well developed, well nourished. Obese HEENT: Pupils are round and equally reacting to light. EOMI. no scleral icterus. No conjunctival pallor. Normocephalic, atraumatic. No pharyngeal erythema. No thyromegaly. CARDIOVASCULAR: S1 and S2 muffled PULMONARY: Breath sounds are clear to auscultation with no wheezing or rhonchi noted ABDOMEN: soft. tender on palpation of the right upper quadrant and right lower quadrant. obese. non-distended, normoactive bowel sounds. No palpable organom egaly. MUSCULOSKELETAL: No joint swelling or deformity. EXTREMITIES: No cyanosis, clubbing, or pedal edema. NEUROLOGICAL: Gross neurological examination did not reveal any focal deficits. SKIN: No rashes. Assessment: Abdominal pain with nausea and vomiting Cholelithiasis with biliary sludge suggestive of acute cholecystitis on ultrasound Leukocytosis secondary to above History of depression Sedentary lifestyle GI prophylaxis DVT prophylaxis Full code Plan: Recommend to continue with current medications and will have surgery evaluate the patient. Patient was initially admitted to surgery services for an acute cholecystitis although family is refusing the surgeon that was on at the time requesting another surgeon. Nursing staff and case management working on accepting physician. Patient has had multiple visits to the ER for the same symptoms over the last 3 months and family is extremely upset over her overall care. Per family they would like the patient to stay for pain management as she is not eating and unable to tolerate with nausea and extreme abdominal pain. Will continue IV antibiotics and IV hydration with follow-up labs and discuss with surgery. Patient is currently stable and reports her pain is controlled on current regimen and will continue for now. Appropriate home medications have been resumed and if patient can tolerate diet possibly clear liquids or ice chips are okay if no surgical intervention is being planned for this evening. Patient is currently nothing by mouth and will continue with IV hydration. Recommend repeat labs in the a.m. and will continue to follow. The impression and plan of care has been dictated by Karen West, nurse practitioner as directed. Dr. Surya PRUITT I have performed a history and examination and MDM of this patient, discussed the same with the dictator, and agree with the dictator's assessment and plan as written ,documented as a scribe. Based on total visit time, I have performed more than 50% of the visit. Any additional findings or plans will be noted. Past Medical History Past Medical History: No Reported History History of Any Multi-Drug Resistant Organisms: None Reported Past Surgical History: No Surgical Hx Reported Past Psychological History: Depression Smoking Status: Never smoker Past Alcohol Use History: Occasional Past Drug Use History: None Reported Medications and Allergies Home Medications Medication Instructions Recorded Confirmed Type Omeprazole [PriLOSEC] 20 mg PO AC-BRKFST #30 cap 02/13/22 02/18/22 Rx Ondansetron Odt [Zofran Odt] 4 mg PO Q8HR PRN #10 tab 02/13/22 02/18/22 Rx ARIPiprazole [Abilify] 10 mg PO DAILY@192902/18/22 02/18/22 History Ascorbic Acid [Vitamin C] 500 mg PO DAILY 02/18/22 02/18/22 History Cholecalciferol [Vitamin D3 (25 50 mcg PO DAILY 02/18/22 02/18/22 History Mcg = 1000 Iu)] Escitalopram [Lexapro] 20 mg PO DAILY@192902/18/22 02/18/22 History Allergies Allergy/AdvReac Type Severity Reaction Status Date / Time No Known Allergies Allergy Verified 02/18/22 05:54 Physical Exam Vitals: Vital Signs Temp Pulse Pulse Resp BP Pulse Ox 02/18/22 12:24 98.8 F 69 16 100 02/18/22 11:38 98 F 65 18 97/49 99 02/18/22 10:41 98.2 F 76 18 119/70 95 02/18/22 07:59 81 18 116/70 98 02/18/22 05:52 98.1 F 114 H 20 127/79 97 Intake and Output 02/17/22 02/18/22 02/18/22 22:59 06:59 14:59 Other: Weight 88.451 kg Results CBC & Chem 7: 02/18/22 07:08 02/18/22 07:10 Labs: Abnormal Lab Results - Last 24 Hours (Table) 02/18/22 02/18/22 02/18/22 Range/Units 07:08 07:10 09:36 WBC 17.6 H (3.8-10.6) k/uL Hgb 10.9 L (11.4-16.0) gm/dL Hct 33.3 L (34.0-46.0) % MCV 79.8 L (80.0-100.0) fL Neutrophils # 15.6 H (1.3-7.7) k/uL Glucose 128 H (74-99) mg/dL Urine Appearance Cloudy H (Clear) Urine Protein 1+ H (Negative) Urine Blood Large H (Negative) Ur Leukocyte Esterase Moderate H (Negative) Urine RBC 8 H (0-5) /hpf Urine WBC 16 H (0-5) /hpf Ur Squamous Epith Cells 8 H (0-4) /hpf Urine Bacteria Rare H (None) /hpf Urine Mucus Rare H (None) /hpf Thrombosis Risk Factor Assmnt - DVT/VTE Prophylaxis DVT/VTE Prophylaxis: Low risk, early ambulation encouraged Assessment and Plan Time with Patient: Greater than 30
[2022-02-18] MEDS ORDERED: PIPERACILLIN-TAZOBACTAM 3.375 GM in SODIUM CHLORIDE 0.9% 100 ML IVPB SCH (16:00)
[2022-02-18] MEDS ORDERED: ESCITALOPRAM 20 MG TAB PO SCH (19:30)
[2022-02-18] MEDS ORDERED: ARIPiprazole 10 MG TAB PO SCH (19:30)
--- NOTE | 2022-02-20 15:31 | P.DS ---
Providers Date of admission: 02/18/22 09:29 Expected date of discharge: 02/18/22 Attending physician: Andrea London Consults: 02/18/22 09:29 Consult Physician Urgent Consulting Provider: James Vines Consult Reason/Comments: Medical management Do you want consulting provider notified?: Yes Primary care physician: Rey Sparks Hospital Course: Final Diagnosis Abdominal pain with nausea and vomiting Cholelithiasis with biliary sludge suggestive of acute cholecystitis on ultrasound Leukocytosis secondary to above History of depression Sedentary lifestyle GI prophylaxis DVT prophylaxis Full code Discharge disposition Patient is being discharged in a stable condition with guarded prognosis to home. Patient will follow-up with Dr. Sparks in the outpatient setting upon discharge. Patient is to follow up outpatient with Dr desai. Total time taken is greater than 35 minutes. Hospital course This is an 22-year-old female who was recently admitted with abdominal pain underwent abdominal ultrasound along with gallbladder and found to have gallstones with acute cholecystitis and sludge noted. Patient was admitted under surgical services although refusing the on-call surgeon and received a second opinion from Dr. Desai who has evaluated the patient recommending outpatient follow-up this Friday with surgical intervention this week as needed. Patient and family are agreeable with this and will be discharged today. Patient is to continue on oral pain medication along with Ceftin and Flagyl and again encouraged to follow-up with Dr. Desai on Friday morning at 9 AM. Currently no reports of chest pain, shortness of breath, or palpitations. Patient is afebrile. No reports of nausea or vomiting and patient is to lerating diet. Patient will be discharged home today. Guarded prognosis. High risk for readmissions. On exam vital signs are stable. Cardio S1, S2 are muffled. Respiratory system shows diminished breath sounds at the bases with no wheezing or rhonchi noted. Abdomen is soft and nontender. Nervous system shows diffuse weakness. Please refer to medication reconciliation sheet for a list of medications. The impression and plan of care has been dictated by Karen West, Nurse Practitioner as directed. Dr. Surya MD I have performed a history and examination and MDM of this patient, discussed the same with the dictator, and agree with the dictator's assessment and plan as written ,documented as a scribe. Based on total visit time, I have performed more than 50% of the visit. Patient Condition at Discharge: Stable Plan - Discharge Summary New Discharge Prescriptions: New cefUROXime axetiL [Ceftin] 500 mg PO BID 7 Days #14 tab metroNIDAZOLE [Flagyl] 500 mg PO TID 7 Days #21 tab HYDROcodone/APAP 5-325MG [Clint 5-325] 1 tab PO Q6HR PRN 3 Days #12 tab PRN Reason: Pain Continue Omeprazole [PriLOSEC] 20 mg PO AC-BRKFST #30 cap Cholecalciferol [Vitamin D3 (25 Mcg = 1000 Iu)] 50 mcg PO DAILY Ondansetron Odt [Zofran ODT] 4 mg PO Q8HR PRN #20 tab PRN Reason: Nausea Escitalopram [Lexapro] 20 mg PO DAILY@1929 Ascorbic Acid [Vitamin C] 500 mg PO DAILY ARIPiprazole [Abilify] 10 mg PO DAILY@1929 Discharge Medication List Omeprazole [PriLOSEC] 20 mg PO AC-BRKFST #30 cap 02/13/22 [Rx] ARIPiprazole [Abilify] 10 mg PO DAILY@192902/18/22 [History] Ascorbic Acid [Vitamin C] 500 mg PO DAILY 02/18/22 [History] Cholecalciferol [Vitamin D3 (25 Mcg = 1000 Iu)] 50 mcg PO DAILY 02/18/22 [History] Escitalopram [Lexapro] 20 mg PO DAILY@192902/18/22 [History] HYDROcodone/APAP 5-325MG [Clint 5-325] 1 tab PO Q6HR PRN 3 Days #12 tab 02/18/22 [Rx] Ondansetron Odt [Zofran ODT] 4 mg PO Q8HR PRN #20 tab 02/18/22 [Rx] cefUROXime axetiL [Ceftin] 500 mg PO BID 7 Days #14 tab 02/18/22 [Rx] metroNIDAZOLE [Flagyl] 500 mg PO TID 7 Days #21 tab 02/18/22 [Rx] Follow up Appointment(s)/Referral(s): Rey Sparks MD [Primary Care Provider] - 1-2 days Dionicio Desai DO [Doctor of Osteopathic Medicine] - 1 Week Patient Instructions/Handouts: Cholecystitis (ED), Cholecystitis (GEN) Activity/Diet/Wound Care/Special Instructions: Activity limited until follow up follow up with Dr. Desai on friday continue medications as prescribed continue clear liquid diet until surgery follow up Discharge Disposition: HOME SELF-CARE
== END 2022-02-18 17:40 | disposition home or self-care (01) ==
LOC: EC 05:40 → 4FBP 09:29
PROVIDERS: ADMIT Internal Medicine; ATTEND Internal Medicine
DX: K80.00 Calculus of gallbladder with acute cholecystitis without obstruction (principal); K21.9 Gastro-esophageal reflux disease without esophagitis; K59.00 Constipation, unspecified; K29.70 Gastritis, unspecified, without bleeding; F32.A Depression, unspecified; Z79.899 Other long term (current) drug therapy
CPT/HCPCS: 96361; 96374; 96375; 99285; 36415; 80053; 82150; 83690; 85025; 81001; 81025; 87040; 80306; 87086; 76705; G0378; J2543; J2405; J1885; C9113; J1170